=== PATIENT | female | born 1940 | race Asian ===

== ENCOUNTER 2022-06-10 17:47 | Emergency (ER) | payer OTHER, SELFPAY ==
--- NOTE | ~2022-06-10 | XR_ITS ---
EXAM: XR hip RT 2V w AP pelvis DATE: 06/10/2022 20:29 HISTORY: fall, R hip pain since . COMPARISON: CT abdomen pelvis 01/13/2019. FINDINGS: Decreased mineralization. No fracture or dislocation. No lytic or blastic lesion. Degenera tive lumbar disc disease. Bilateral hip osteoarthritis. No erosion or periosteal change. Vascular valentin cifications tissues within normal limits. IMPRESSION: No acute osseous finding in the pelvis or right hip. Reviewed, dictated and finalized at location K. [employer]PER[employer]
--- NOTE | ~2022-06-10 | CT_ITS ---
EXAMINATION: CT cervical spine wo con DATE: 06/10/2022 20:37 INDICATION: fall, neck pain TECHNIQUE: Computed tomography (CT) of the cervical spine was performed without intravenous contrast. Automated exposure control and iterative reconstruction technique were employed. The dose-length pro duct was 153.02 mGy-cm. COMPARISON: X-ray C-spine 02/13/2014. FINDINGS: Vertebral Body Alignment: Intact. Reversed cervical lordosis centered at C5. Stable multilevel grade 1 listheses. Craniocervical and atlantoaxial alignment: Moderate degenerative change. Alignment intact. Osseous structures/fracture: No evidence of a lytic or blastic process in the visualized spine. No e vidence of acute fracture. Bilateral facet fusion at C3-4. Cervical soft tissues: The paraspinal soft tissues planes are maintained. Bilateral thyroid nodules m easuring up to 2.1 cm on the left. Trace left mastoid fluid. Small volume right mastoid fluid. Heavy atherosclerotic calcifications Degenerative changes: Multilevel degenerative disc disease and facet arthropathy. Multilevel severe b ilateral neural foraminal narrowing. Moderate central canal narrowing at C5-6. IMPRESSION: No acute fracture or traumatic malalignment in the cervical spine. Multiple thyroid nodules, measurin g up to 2.1 cm on the left. Consider nonemergent, outpatient thyroid ultrasound for further character ization. Reviewed, dictated and finalized at location K. [employer] RE[employer]ICATION SPECIALIST IMPRESSION: No acute fracture or traumatic malalignment in the cervical spine. Multiple thy roid nodules, measuring up to 2.1 cm on the left. Consider nonemergent, outpati ent thyroid ultrasound for further characterization.
--- NOTE | ~2022-06-10 | CT_ITS ---
EXAMINATION: CT brain wo con DATE: 06/10/2022 20:34 INDICATION: fall, head injury . TECHNIQUE: Computed tomography (CT) of the head was performed without intravenous contrast. The mA wa s adjusted according to patient size. Iterative reconstruction technique was employed. The dose-lengt h product was 605.33 mGy-cm. COMPARISON: None. FINDINGS: No acute intracranial hemorrhage or extra-axial fluid collection. No hydrocephalus, mass, or herniation. No acute ischemic infarct. Unremarkable dural venous sinus attenuation. No acute osseous abnormality. Small right frontotemporal scalp contusion. Left maxillary mucosal thickening, air-fluid level and surrounding sclerosis. Small volume right mast oid fluid. The remaining aerated spaces are clear. Mild atrophy and chronic white matter change. Atherosclerotic intracranial calcification. IMPRESSION: No acute intracranial process. Reviewed, dictated and finalized at location K. [employer]
[2022-06-10 19:43] VITALS: BP 149/75; PULSE 77; RESP 15; TEMP 36.4; O2SAT 97
--- NOTE | 2022-06-10 20:15 | ED.HEATRA ---
HPI - Head Injury General Chief complaint: Head Injury Stated complaint: fall/hi/no thinners Time Seen by Provider: 06/10/22 19:59 History of Present Illness HPI Narrative: Patient is an 81-year-old female here with her daughter for evaluation after a fall while shopping earlier today. Patient states that she was ambulating in her usual state of health when she believes she tripped over a curb, causing her to fall and strike her head and right side against the ground. Patient did not lose consciousness. Daughter was there to witness the event. She does not take blood thinners. Since the fall, she has complained of a right frontal headache and right hip pain. She has been able to ambulate without significant discomfort. She was in her usual state of health this morning, denies preceding chest pain, dizziness, lightheadedness, shortness of breath or visual changes. Related Data Home Medications Medication Instructions Recorded Confirmed amlodipine 5 mg tablet (Norvasc) 5 mg PO DAILY 12/23/19 09/27/21 furosemide 20 mg tablet (Lasix) 20 mg PO QAM 12/23/19 09/27/21 ascorbate calcium (vitamin C) 500 500 mg PO DAILY 07/21/20 09/27/21 mg tablet betamethasone valerate 0.1 % 1 applic topical DAILY PRN 07/21/20 09/27/21 topical cream cholecalciferol (vitamin D3) 10 10 mcg PO DAILY 07/21/20 09/27/21 mcg (400 unit) capsule clobetasol 0.05 % topical cream 1 applic topical DAILY 07/21/20 09/27/21 estradiol 0.01% (0.1 mg/gram) 1 appful vaginal DAILY 07/21/20 09/27/21 vaginal cream (Estrace) losartan 25 mg tablet 25 mg PO DAILY 07/21/20 09/27/21 metformin 500 mg/5 mL oral 500 mg PO DAILY 07/21/20 09/27/21 solution (Riomet) oldrsoaunbbk-cpacckdg-kbchpr tablet 1 tablet PO DAILY 07/21/20 09/27/21 nitrofurantoin 100 mg PO Q12H 07/21/20 09/27/21 monohydrate/macrocrystals 100 mg capsule (Macrobid) omega 2-uzl-kmr-fish oil 100 cap PO 07/21/20 09/27/21 mg-160 mg-1,000 mg capsule (Fish Oil) omeprazole 20 mg capsule,delayed 20 mg PO DAILY 07/21/20 09/27/21 release oxycodone-acetaminophen 2.5 mg-325 1 tablet PO Q8H PRN 07/21/20 09/27/21 mg tablet (Percocet) vitamin E 100 unit/0.25 mL oral unit PO DAILY 07/21/20 09/27/21 drops aspirin 81 mg tablet,delayed 81 mg PO DAILY 09/27/21 09/27/21 release atorvastatin 40 mg tablet 40 mg PO DAILY 09/27/21 09/27/21 cetirizine 10 mg capsule (All Day 10 mg PO DAILY PRN 09/27/21 09/27/21 Allergy (cetirizine)) fenofibrate 54 mg tablet 54 mg PO DAILY 09/27/21 09/27/21 fluconazole 150 mg tablet 150 mg PO DAILY 09/27/21 09/27/21 meclizine 25 mg tablet 25 mg PO BID PRN 09/27/21 09/27/21 meloxicam 15 mg tablet 15 mg PO DAILY 09/27/21 09/27/21 metoprolol succinate 25 mg 12.5 mg PO DAILY 09/27/21 09/27/21 tablet,extended release 24 hr ondansetron 8 mg disintegrating 8 mg PO Q12H 09/27/21 09/27/21 tablet potassium chloride 20 mEq/15 mL 20 meq PO DAILY 09/27/21 09/27/21 oral liquid sennosides 8.6 mg capsule (senna) 8.6 mg PO DAILY 09/27/21 09/27/21 sitagliptin phosphate 25 mg tablet 25 mg PO DAILY 09/27/21 09/27/21 triamcinolone acetonide 0.1 % 1 applic topical DAILY 09/27/21 09/27/21 topical ointment Allergies Allergy/AdvReac Type Severity Reaction Status Date / Time Sulfa (Sulfonamide Allergy Severe Anaphylaxis Verified 06/10/22 20:07 Antibiotics) shellfish derived Allergy Mild Hives Verified 06/10/22 20:07 Penicillins Allergy Unknown unknown Verified 06/10/22 20:07 Review of Systems Review of Systems: Gen: Denies fevers or chills Eyes: Denies eye pain or visual change ENT: Denies congestion Respiratory: Denies shortness of breath or cough CV: Denies chest pain or palpitations GI: Denies abdominal pain nausea, emesis or diarrhea : denies burning, urgency, frequency or hematuria Musculoskeletal: Reports right hip pain. Neuro: Denies numbness, tingling, weakness or focal weakness Skin: Denies rash Except as documented, all other systems reviewed and negative P
[2022-06-10] MEDS: ACETAMINOPHEN 325 MG TABLET 650 MG PO (20:18)
== END 2022-06-10 21:43 | disposition home or self-care (01) ==
PROVIDERS: Emergency Provider Physician Assistant
DX: E04.1 Nontoxic single thyroid nodule (principal); S09.90XA Unspecified injury of head, initial encounter; W01.0XXA Fall on same level from slipping, tripping and stumbling without subsequent striking against object, initial encounter; I10 Essential (primary) hypertension; Z87.891 Personal history of nicotine dependence
CPT/HCPCS: 70450; 72125; 73502; 99284; A9270

== ENCOUNTER 2024-06-18 12:30 | Outpatient (RCR) | payer OTHER, SELFPAY ==
--- NOTE | 2024-04-23 13:33 | OPREHPOC ---
Outpatient Therapy Plan of Care This is a Multidisciplinary Plan of Care that may contain components documented by all disciplines (PT, OT, and ST.) PT Problem 1 PT Problem #1 Knowledge Deficit PT Goal 1 Goal / Goal Update *indep with HEP Target Visit 8 PT Goal 2 Goal / Goal Update * pt use correct body mechanics with picking up item from floor Target Visit 8 PT Problem 2 PT Problem #2 Pain PT Goal 1 Goal / Goal Update * pt report pain rating at worst of 5/10 Target Visit 8 PT Goal 2 Goal / Goal Update *radicular pain to knees at worst Target Visit 8 PT Problem 3 PT Problem #3 Impaired Strength PT Goal 1 Goal / Goal Update * increase trunk and LE strength to improve stability to spine and trunk: pt perform 20 reps of mat strengthening exercises Target Visit 8 PT Problem 4 PT Problem #4 Impaired Functional Mobility PT Goal 1 Goal / Goal Update * increase 2 minute walking distance to 325' with cane Target Visit 8
--- NOTE | 2024-04-23 13:34 | PTOPEVAL1 ---
Assessment and note entered by Nirmala Chase, PT Evaluation Information Assessment Status Evaluation ICD-10 Condition Codes (PT) Pain in low back M54.50,M54.16 Onset Mar 2024 Subjective Information back and into both legs- pain came on without injury to back; x ray '23: DDD lumbar spine and bilateral hip OA; no falls in the past 6 months; have treadmill at home, was doing 30 min for exercises, cannot do anymore due to back pain; Activity: use cane when go out and PRN in home; indep with light home and self care activities; live with family GOAL: less pain in back and legs Reported Pain Level Pain Score 8: Self Report Additional Pain Score Comments pain stays 8/10 all the time; low back and into posterior leg to ankles--bilateral; stiff, hurts increase pain: bending forward decrease pain; taking gabapentin at night; tried muscle creams not help; heat does not help sleeping is OK, taking gabapentin at night; walking/standing tolerance reported 20-30 min Assessment PT Clinical Summary Nelsy has the diagnosis of back pain, reports constant radicular pain into both legs to above ankles. Decreased walking and standing tolerance reported of 20-30 minutes. Oswestry self assessment rating of 52% limitation in activity level. She is at home with family and is indep with self care and light home tasks. Xray in reports: DDD lumbar spine, bilateral hip OA. With the evaluation: pain is increased with standing trunk flexion and extension motions, supine R hip IR, bridge, trunk rotation R/L and piriformis stretching; prone on elbows increases pain; she has good flexibility of her hips, with hip and trunk 4-/5 strength; Skilled PT services are indicated for modalities to decrease pain, therapeutic activities and exercises to increase strength and stability to spine with education for HEP and posture/body mechanics. Plan of Care Interventions Electrical Stimulation,Hot Pack/Cold Pack,Manual Therapy,Neuro Re-education,Patient/Caregiver Education,Therapeutic Activities,Therapeutic Exercise,Ultrasound,Other Other Interventions taping PT Services Indicated Yes Treatment Frequency and 1-2 x/wk for 8 visits Duration These treatments will address the objective and functional deficits as defined above. The patient will be advanced safely and appropriately in order for the patient to progress towards his/her prior level of function. Additional exercises will be introduced and as well as a comprehensive home exercise program upon discharge, if needed, ?to ensure carryover of functional gains achieved in the clinic. This treatment plan has been reviewed and agreement upon by the patient.
--- NOTE | 2024-05-07 10:26 | PCPTNOTE ---
Pt canceled this morning due to illness.
--- NOTE | 2024-05-25 09:59 | PCPTNOTE ---
05/14/24 - Exercises were as follows:LTR x 10 reps each side SKTC x 10 reps each side BKFO x 10 reps each side Piriformis Stretching x 30s x 3 each side Bridge x 10 for 5 sec holds Prone heel squeeze x10 5 sec holds LTR x 10 to ea side 3-5 sec holds with pause in center. Pt required cueing for transverse abdominus engagement technique and adding to exercises. [ End ]
--- NOTE | 2024-06-18 13:29 | PTOPDC ---
Assessment and note entered by Nirmala Chase, PT Assessment Status Discharge ICD-10 Condition Codes (PT) Pain in low back M54.50,Radiculopathy, lumbar region M54.16 Onset Mar 2024 Subjective Information feels like pain is little better, low back is better, but still have pain in hips and legs; have been doing the exercises and want to finish up with therapy; go back to the in few weeks. 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 agree to discharge PT and continue with the exercises. Reported Pain Level Pain Score Self Report Additional Pain Score Comments pain range in past week 4-8/10; no pain in back; pointed to R and L lateral hips and posterior thighs; some numbness in lumbar area; stiff in R knee; increase pain: when first stand up from sitting down- pain in legs decrease pain: exercises and ice; tylenol; not taking the gabapentin anymore, did not help Assessment PT Clinical Summary Cheryl has received 6 PT sessions for low back pain. Received new orders for vestibular therapy but she has not had any issues for 2 weeks, so eval not performed. Compared to the initial evaluation: pain rating from 8/10, with radicular pain to both ankles, to 4-8/10- to lateral thighs; self assessment with Oswestry rating from 52% to 40% limitation in activity level; home standing/activity in kitchen about 30 minutes tolerance reported; in supine: R and L hip flexion, IR, ER motions and stretching of hamstrings, piriformis-- no increase in her pain level- previously caused pain; increase strength of trunk and LE with mat exercises; 2 minute walking test distance with cane decreased from 265 to 140'; slow pace with walking and small step length. education for HEP completed. The goals were partially met. Discharge PT. She is to continue with her HEP and monitoring activity level/ rest with pain management. Plan of Care PT Services Indicated No
== END 2024-06-18 14:44 | disposition home or self-care (01) ==
LOC: ANHPT 12:30
PROVIDERS: Visit Provider Anesthesiology
DX: M54.16 Radiculopathy, lumbar region (principal)
CPT/HCPCS: 97110; 97161; 97530